=== PATIENT | female | born 1990 | race Caucasian/White ===

== ENCOUNTER → 2017-12-14 | Outpatient (CLI) | payer BC ==
[~2017-12-14] MED LIST: METHACHOLINE KIT (J7674) INH
== END ==
LOC: M CARPUL 13:47
DX: R06.02 Shortness of breath (principal)
CPT/HCPCS: J7674

== ENCOUNTER → 2017-12-20 | Outpatient (CLI) | payer BC | LOC: M RAD 15:16 | DX: R06.02 Shortness of breath (principal) | CPT/HCPCS: 71046 ==

== ENCOUNTER 2018-07-05 12:53 | Emergency (ER) | payer OTHER, BC ==
[2018-07-05] MEDS: LISSAMINE GREEN OPHTH 1.5 MG STRIP OS (14:13)
[2018-07-05] MEDS: TETRACAINE 0.5% OPHTH SOLN 4ML OS (14:14)
[2018-07-05] MEDS: POLYTRIM OPTH DROPS 10ML OS (15:11)
== END 2018-07-05 15:16 | disposition home or self-care (01) ==
LOC: M ED 12:53
DX: T15.02XA Foreign body in cornea, left eye, initial encounter (principal); Y92.89 Other specified places as the place of occurrence of the external cause
CPT/HCPCS: 99283

== ENCOUNTER → 2018-12-24 | Outpatient (REF) | payer BC ==
[~2018-12-24] MED LIST changes: -METHACHOLINE KIT (J7674) INH; +POLYSOL OS
== END ==
LOC: M LAB REF 09:12
PROVIDERS: ATTEND Physician Assistant
DX: J02.9 Acute pharyngitis, unspecified (principal); J45.21 Mild intermittent asthma with (acute) exacerbation

== ENCOUNTER → 2020-10-16 | Outpatient (CLI) | payer SELFPAY | LOC: M LABSMTC 13:40 | PROVIDERS: ATTEND Pediatrics | DX: Z20.828 Contact with and (suspected) exposure to other viral communicable diseases (principal) ==

== ENCOUNTER → 2021-02-20 | Outpatient (REF) | LOC: M LABSMTC 09:37 | PROVIDERS: ATTEND Pediatrics | DX: Z20.822 Contact with and (suspected) exposure to COVID-19 (principal) ==

== ENCOUNTER → 2021-12-02 | Outpatient (REF) | LOC: M LABSMTC 13:05 | PROVIDERS: ATTEND Pediatrics | DX: Z20.822 Contact with and (suspected) exposure to COVID-19 (principal) ==

== ENCOUNTER → 2022-01-13 | Outpatient (REF) | LOC: M LABSMTC 09:39 | PROVIDERS: ATTEND Family Medicine | DX: Z20.822 Contact with and (suspected) exposure to COVID-19 (principal) ==

== ENCOUNTER → 2023-02-27 | Outpatient (REF) | payer BC | LOC: M LAB REF 09:31 | PROVIDERS: ATTEND Physician Assistant Medical | DX: R19.7 Diarrhea, unspecified (principal) ==

== ENCOUNTER 2024-01-11 21:45 | Emergency (ER) | payer OTHER, BC ==
[~2024-01-11] VITALS: Ht 177.8 cm; Wt 113.9 kg
[2024-01-11 21:49] VITALS: TEMP 97.9
[2024-01-11] MEDS: LORazepam 2 MG/ML 1ML VIAL IV STA (21:58)
[2024-01-11] MEDS: NS 1,000 ML IV ONE (22:38)
[2024-01-11 22:48] LABS: BASO % 0.3 % (0.0-1.0); EOS # 0.2 10^3/uL (0.0-0.5); EOS % 1.4 % (0.0-3.0); HEMATOCRIT 41.4 % (36.0-47.0); HEMOGLOBIN 13.7 g/dl (12.0-15.5); LYMPH # 3.1 10^3/uL (1.5-5.0); LYMPH % 24.3 % (24.0-44.0); MEAN CORPUSCULAR HEMOGLOBIN 30.2 pg (27.0-33.0); MEAN CORPUSCULAR HGB CONC 33.1 g/dl (32.0-36.5); MEAN CORPUSCULAR VOLUME 91.4 fl (80.0-96.0); MONO # 0.7 10^3/uL (0.0-0.8); MONO % 5.2 % (2.0-8.0); NEUTROPHILS # 8.6 10^3/uL (1.5-8.5); NEUTROPHILS % 68.5 % (36.0-66.0); PLATELET COUNT, AUTOMATED 292 10^3/uL (150-450); RED BLOOD COUNT 4.53 10^6/uL (4.00-5.40); WHITE BLOOD COUNT 12.5 10^3/uL (4.0-10.0)
[2024-01-11 23:14] LABS: CK-MB VALUE MASS 2.7 NG/ML (<3.6)
[2024-01-11 23:17] LABS: BLOOD UREA NITROGEN 16 MG/DL (9-23); CALCIUM LEVEL 9.1 MG/DL (8.5-10.1); CARBON DIOXIDE LEVEL 25 MMOL/L (20-31); CHLORIDE LEVEL 108 MMOL/L (98-107); CREATININE FOR GFR 0.75 MG/DL (0.55-1.30); GLOMERULAR FILTRATION RATE > 60.0 (>60); GLUCOSE, FASTING 82 MG/DL (60-100); MAGNESIUM LEVEL 1.7 MG/DL (1.8-2.4); POTASSIUM SERUM 4.1 MMOL/L (3.5-5.1); SODIUM LEVEL 142 MMOL/L (136-145)
[2024-01-11 23:18] LABS: CPK CREATINE PHOSPHOKINASE 201 U/L (34-145); MB/CK RELATIVE INDEX 1.34 (< OR =4)
[2024-01-11] MEDS: MAGNESIUM OXIDE 400MG TAB (MAG-OX) PO ONE (23:55)
[2024-01-12 00:15] VITALS: BP 118/66; O2SAT 98
== END 2024-01-12 00:42 | disposition home or self-care (01) ==
LOC: M ED 21:45
DX: E83.42 Hypomagnesemia (principal); F41.0 Panic disorder [episodic paroxysmal anxiety]; J45.909 Unspecified asthma, uncomplicated; Z79.899 Other long term (current) drug therapy

== ENCOUNTER → 2025-05-17 | Outpatient (RCR) | LOC: M EMPSKH 05-12 08:16 | PROVIDERS: ATTEND Family Medicine | DX: Z11.59 Encounter for screening for other viral diseases (principal) ==